=== PATIENT | male | born 1970 | race Hispanic/Latino ===

== ENCOUNTER 2023-09-24 09:50 | Emergency (ER) | payer BC ==
[2023-09-24] MEDS ORDERED: Acetaminophen 325 MG TAB ONE (10:11)
[2023-09-24] MEDS ORDERED: Albuterol 2.5 MG (3 mL) NEB ONE (10:35)
== END 2023-09-24 11:48 | disposition home or self-care (01) ==
LOC: NAV ERS 09:50
DX: J45.909 Unspecified asthma, uncomplicated (principal); J10.1 Influenza due to other identified influenza virus with other respiratory manifestations; F17.290 Nicotine dependence, other tobacco product, uncomplicated; Z20.822 Contact with and (suspected) exposure to COVID-19
CPT/HCPCS: 71046; 87635; 87804; 94640; 94664; J7611